=== PATIENT | female | born 1935 | race African-American/Black ===

== ENCOUNTER 2016-10-21 12:57 | Emergency (ER) | payer OTHER ==
[~2016-10-21] VITALS: Ht 172.7 cm; Wt 90.0 kg
[2016-10-21 13:00] VITALS: BP 201/83; PULSE 59; RESP 20; TEMP 97.8; O2SAT 98
[2016-10-21 13:35] VITALS: RESP 18; O2SAT 100
--- NOTE | 2016-10-21 13:36 | PD ---
HPI Chief Complaint: Wound/Suture/Staple Re-Check Time Seen by Provider: 13:19 Travel History International Travel<30 days: No Contact w/Intl Traveler<30days: No Traveled to known affect area: No History of Present Illness HPI 81-year-old female here for evaluation of painful wounds to her bilateral legs. The patient reports having wounds to her legs on and off for the last several months. She states that she went to an orthopedist office yesterday who recommended that she go to the emergency department for evaluation and wound care. She states that she tried to be seen by her primary care physician, however he is currently out of town. She believes the wound started from her dog. Pain is moderate to severe, constant, worse with movement and palpation. She denies fevers or chills. PFSH Social History Tobacco Use: No Allergies-Medications (Allergen,Severity, Reaction): Coded Allergies: No Known Allergies (Unverified , 10/21/16) Reported Meds & Prescriptions Reported Meds & Active Scripts Active Tramadol (Tramadol HCl) 50 Mg Tab 50 Mg PO Q6H PRN Clindamycin (Clindamycin HCl) 150 Mg Cap 450 Mg PO Q6H 10 Days Reported Losartan (Losartan Potassium) 50 Mg Tab 50 Mg PO DAILY Furosemide 20 Mg Tab 20 Mg PO DAILY Review of Systems Except as stated in HPI: all other systems reviewed are Neg Physical Exam Narrative GENERAL: Well-developed, well-nourished, comfortable, no acute distress. SKIN: Medial/distal left leg with moderate size ulcerative wound, superficial, surrounding warmth and erythema, no signs of lymphangitis. On the right distal/ lateral leg there is an ulceration moderate size as well with mild surrounding warmth and erythema, no purulent drainage, dry, appears to be healing. No crepitus around either wound. There is moderate tenderness around both wounds. HEAD: Atraumatic. Normocephalic. EYES: Pupils equal and round. No scleral icterus. No injection or drainage. ENT: Mucous membranes pink and moist. CARDIOVASCULAR: Regular rate and rhythm. Bilateral dorsalis pedis pulses are faint palpable. RESPIRATORY: No accessory muscle use. Clear to auscultation. Breath sounds equal bilaterally. GASTROINTESTINAL: Abdomen soft, non-tender, nondistended. MUSCULOSKELETAL: No obvious deformities. No clubbing. No cyanosis. Mild bilateral pedal edema. NEUROLOGICAL: Awake and alert. No obvious cranial nerve deficits. Motor grossly within normal limits. Normal speech. PSYCHIATRIC: Appropriate mood and affect; insight and judgment normal. Data Data Last Documented VS Vital Signs Date Time Temp Pulse Resp B/P Pulse Ox O2 Delivery O2 Flow Rate FiO2 10/21/16 15:36 60 18 135/67 96 10/21/16 13:00 97.8 Room Air Orders Complete Blood Count With Diff (10/21/16 13:23) Comprehensive Metabolic Panel (10/21/16 13:23) Prothrombin Time / Inr (Pt) (10/21/16 13:23) Act Partial Throm Time (Ptt) (10/21/16 13:23) Lactic Acid Sepsis Protocol (10/21/16 13:23) Blood Culture (10/21/16 13:23) Ecg Monitoring (10/21/16 13:23) Iv Access Insert/Monitor (10/21/16 13:23) Oximetry (10/21/16 13:23) Tibia/Fibula (Ap/Lat) (10/21/16 ) Tibia/Fibula (Ap/Lat) (10/21/16 ) Us Leg Venous Doppler Bilat (10/21/16 ) Clindamycin (Cleocin) (10/21/16 16:00) Wound Care (10/21/16 15:48) Labs Laboratory Tests Test 10/21/16 13:55 White Blood Count 7.7 TH/MM3 Red Blood Count 4.03 MIL/MM3 Hemoglobin 11.0 GM/DL Hematocrit 34.4 % Mean Corpuscular Volume 85.4 FL Mean Corpuscular Hemoglobin 27.4 PG Mean Corpuscular Hemoglobin 32.1 % Concent Red Cell Distribution Width 14.7 % Platelet Count 247 TH/MM3 Mean Platelet Volume 8.4 FL Neutrophils (%) (Auto) 47.2 % Lymphocytes (%) (Auto) 40.8 % Monocytes (%) (Auto) 9.2 % Eosinophils (%) (Auto) 1.6 % Basophils (%) (Auto) 1.2 % Neutrophils # (Auto) 3.6 TH/MM3 Lymphocytes # (Auto) 3.1 TH/MM3 Monocytes # (Auto) 0.7 TH/MM3 Eosinophils # (Auto) 0.1 TH/MM3 Basophils # (Auto) 0.1 TH/MM3 CBC Comment DIFF FINAL Differential Comment Prothrombin Time 10.9 SEC Prothromb Time International 1.0 RATIO Ratio Activated Partial 28.7 SEC Thromboplast Time Sodium Level 140 MEQ/L Potassium Level 3.7 MEQ/L Chloride Level 103 MEQ/L Carbon Dioxide Level 28.3 MEQ/L Anion Gap 9 MEQ/L Blood Urea Nitrogen 20 MG/DL Creatinine 1.11 MG/DL Estimat Glomerular Filtration 57 ML/MIN Rate Random Glucose 115 MG/DL Lactic Acid Level 1.0 mmol/L Calcium Level 8.9 MG/DL Total Bilirubin 0.3 MG/DL Aspartate Amino Transf 21 U/L (AST/SGOT) Alanine Aminotransferase 20 U/L (ALT/SGPT) Alkaline Phosphatase 84 U/L Total Protein 7.7 GM/DL Albumin 3.8 GM/DL [facility] Medical Decision Making Medical Screen Exam Complete: Yes Emergency Medical Condition: Yes Differential Diagnosis Venous stasis ulcers, PAD, cellulitis, DVT, necrotizing fasciitis Narrative Course Vital signs reviewed. CBC shows WBC 7.7, hemoglobin 11, hematocrit 34.4, platelets 247. CMP is essentially unremarkable. Lactic acid is 1.0. Bilateral tib-fib x-ray show no free air. Bilateral lower extremity duplex: Normal exam. No DVT. Patient was made aware of all findings. She is resting comfortably. Her ulcers are likely from venous stasis. Her bilateral feet are warm. Bilateral dorsalis pedis pulses are faint, yet palpable. These ulcerations have been going on for about a month. She is afebrile. I did offer to admit her for IV antibiotics and wound care, however the patient prefers to be discharged home and follow-up as an outpatient. I will discharge her home with a prescription for clindamycin. I will give her the information to the wound care clinic here in [place]. I have also instructed her to follow up with her primary care physician this week. She was informed on when to return to the emergency department. She verbalizes understanding and agreement with plan. The patient is requesting pain medication. She states that she drove here today and is going to drive herself home. I offered her Tylenol in the emergency Department, however she declined. I will give her prescription for tramadol. I advised her of the dangers of taking narcotic pain medications. She will take them responsibly. Diagnosis Primary Impression: Bilateral leg ulcer Qualified Code: L97.911 - Bilateral leg ulcer, limited to breakdown of skin Referrals: Primary Care Physician 3 days Additional Instructions: Take antibiotic as prescribed. Change dressing daily. Follow-up in the [place] [facility] Return to the emergency department for worsening symptoms or any other concerns. Follow-up with your primary care physician this week. Scripts Tramadol 50 Mg Tab50 Mg PO Q6H PRN (PAIN) #10 TAB Ref 0 Prov:Cameron Farias MD 10/21/16 Clindamycin 150 Mg [id number] Mg PO Q6H 10 Days Ref 0 Prov:Cameron Farias MD 10/21/16 Disposition: 01 DISCHARGE HOME Condition: Stable Cameron Farias MD Oct 21, 2016 13:36
[2016-10-21] MEDS ORDERED: LOSA50TA PO (13:37)
[2016-10-21] MEDS ORDERED: FURO20TA PO (13:37)
--- NOTE | 2016-10-21 14:25 | RADRPT ---
EXAM DATE/TIME: 10/21/2016 14:12 [facility] COMPARISON: No previous studies available for comparison. INDICATIONS : Patient has had open sores on her lower Tibia and fibula for four months. MEDICAL HISTORY : Hypertension. SURGICAL HISTORY : None. ENCOUNTER: Initial ACUITY: 4 - 6 months PAIN SCORE: 0/10 LOCATION: Right Tib/Fib FINDINGS: Two view examination of the right tibia demonstrates no evidence of fracture or dislocation. Bony mi neralization is normal. The soft tissue structures are intact. CONCLUSION: No acute osseous injury. Mykel Weaver MD on October 21, 2016 at 14:23 Board Certified Radiologist. This report was verified electronically.
--- NOTE | 2016-10-21 14:28 | RADRPT ---
EXAM DATE/TIME: 10/21/2016 14:12 [facility] COMPARISON: No previous studies available for comparison. INDICATIONS : Patient has had open sores on her lower Tibia and fibula for four months. MEDICAL HISTORY : Hypertension. SURGICAL HISTORY : None. ENCOUNTER: Initial ACUITY: 4 - 6 months PAIN SCORE: 0/10 LOCATION: Left Tib/Fib. FINDINGS: Two view examination of the left tibia demonstrates no evidence of fracture or dislocation. Bony min eralization is normal. The soft tissue structures are intact. Degenerative osteoarthritic changes of the knee. CONCLUSION: Degenerative osteoarthritic changes of the knee. No acute fracture. Mykel Weaver MD on October 21, 2016 at 14:25 Board Certified Radiologist. This report was verified electronically.
[2016-10-21 14:31] LABS: AUTOMATED NEUTROPHIL # 3.6 TH/MM3 (1.8-7.7); BASOPHIL # 0.1 TH/MM3 (0-0.2); BASOPHIL % 1.2 % (0.0-2.0); EOSINOPHIL # 0.1 TH/MM3 (0-0.4); EOSINOPHIL % 1.6 % (0.0-4.0); HEMATOCRIT 34.4 % (35.0-46.0); HEMO FLAGS DIFF FINAL; LYMPH % 40.8 % (9.0-44.0); LYMPHOCYTE # 3.1 TH/MM3 (1.0-4.8); MEAN CELL VOLUME 85.4 FL (80.0-100.0); MEAN CORPUSCULAR HEMOGLOBIN 27.4 PG (27.0-34.0); MEAN CORPUSCULAR HGB CONC 32.1 % (32.0-36.0); MONO % 9.2 % (0.0-8.0); NEUT % 47.2 % (16.0-70.0); PLATELET COUNT 247 TH/MM3 (150-450); RED BLOOD COUNT 4.03 MIL/MM3 (4.00-5.30); RED CELL DISTRIBUTION WIDTH 14.7 % (11.6-17.2); WHITE BLOOD COUNT 7.7 TH/MM3 (4.0-11.0)
[2016-10-21 14:42] LABS: APTT (PATIENT) 28.7 SEC (24.3-30.1); PROTHROMBIN TIME - PATIENT 10.9 SEC (9.8-11.6)
[2016-10-21 14:43] LABS: ALT (GPT) 20 U/L (10-53); ANION GAP 9 MEQ/L (5-15); AST (GOT) 21 U/L (15-37); BICARBONATE 28.3 MEQ/L (21.0-32.0); BLOOD UREA NITROGEN 20 MG/DL (7-18); CHLORIDE 103 MEQ/L (98-107); GLOMERULAR FILTRATION RATE 57 ML/MIN (>89); POTASSIUM 3.7 MEQ/L (3.5-5.1); SODIUM (NA) 140 MEQ/L (136-145)
[2016-10-21 14:45] LABS: ALKALINE PHOSPHATASE 84 U/L (45-117); TOTAL BILIRUBIN ADULT 0.3 MG/DL (0.2-1.0)
--- NOTE | 2016-10-21 15:33 | RADRPT ---
EXAM DATE/TIME: 10/21/2016 14:45 [facility] COMPARISON: No previous studies available for comparison. INDICATIONS : Bilateral leg pain. MEDICAL HISTORY : Hypertension. SURGICAL HISTORY : None. ENCOUNTER: Initial ACUITY: 2 weeks PAIN SCORE: 6/10 LOCATION: Bilateral legs. TECHNIQUE: Venous ultrasound of the left and right leg was performed from the inguinal ligament to the proximal calf. Real-time, color Doppler and spectral tracing, compression and augmentation techniques were us ed. FINDINGS: RIGHT LEG: There is normal compressibility of the deep venous system from the inguinal region to the proximal ca lf. No echogenic clot is seen in the lumen of the common femoral, femoral, popliteal, and posterior tibial veins. There is a normal response of the venous system to proximal and distal augmentation an d respiration. LEFT LEG: There is normal compressibility of the deep venous system from the inguinal region to the proximal ca lf. No echogenic clot is seen in the lumen of the common femoral, femoral, popliteal, and posterior tibial veins. There is a normal response of the venous system to proximal and distal augmentation an d respiration. CONCLUSION: Normal examination. Bubba Mauricio MD on October 21, 2016 at 15:31 Board Certified Radiologist. This report was verified electronically.
[2016-10-21 15:36] VITALS: BP 135/67; PULSE 60; RESP 18; O2SAT 96
[2016-10-21] MEDS ORDERED: TRAM50TA PO (15:47)
[2016-10-21] MEDS ORDERED: CLIN1CAP5 PO (15:47)
[2016-10-21] MEDS ORDERED: CLINDAMYCIN 150 MG CAP PO ONE (16:00)
== END 2016-10-21 16:27 | disposition home or self-care (01) ==
LOC: NEPC 12:57
DX: L97.921 Non-pressure chronic ulcer of unspecified part of left lower leg limited to breakdown of skin (principal); L97.911 Non-pressure chronic ulcer of unspecified part of right lower leg limited to breakdown of skin; M79.605 Pain in left leg; M79.604 Pain in right leg
CPT/HCPCS: 73590; 80053; 83605; 85025; 85610; 85730; 87040; 93970